=== PATIENT | male | born 1980 | race Caucasian/White ===

== ENCOUNTER 2020-12-06 02:08 | Emergency (ER) | payer SELFPAY ==
[~2020-12-06] VITALS: Ht 157.5 cm; Wt 62.0 kg
[2020-12-06 06:13] VITALS: BP 119/66
== END 2020-12-06 06:20 | disposition home or self-care (01) ==
LOC: ER 02:08
DX: F10.129 Alcohol abuse with intoxication, unspecified (principal); Y90.9 Presence of alcohol in blood, level not specified; R56.9 Unspecified convulsions; R94.31 Abnormal electrocardiogram [ECG] [EKG]
CPT/HCPCS: 93005; 99283